=== PATIENT | female | born 1950 | race Caucasian/White ===

== ENCOUNTER → 2016-11-10 | Outpatient (CLI) | payer MEDICARE | LOC: GMAM 18:21 | PROVIDERS: ATTEND Family Medicine | DX: R31.9 Hematuria, unspecified (principal) ==

== ENCOUNTER → 2016-12-31 | Outpatient (CLI) | payer MEDICARE ==
--- NOTE | 2017-01-01 07:28 | CT ---
EXAM DESCRIPTION: Abdomen/Pelvis w/wo Contrast CLINICAL HISTORY: HEMATURIA COMPARISON: March 12, 2015 TECHNIQUE: CT of the abdomen and Pelvis was performed without IV contrast. This exam was performed according to our departmental dose-optimization program, which includes automated exposure control, adjustment of the mA and/or kV according to patient size and/or use of iterative reconstruction technique. FINDINGS: Pre-IV contrast images show no lung base abnormality. There is no left or right-sided urinary tract calculus. The gallbladder is surgically absent. Hazy appearance of the mesentery is noted, but this is stable from March 12, 2015. Postcontrast images show cortical irregularity in both kidneys suggestive of scarring from remote polynephritis. There is a 1.8 cm left renal cyst. No solid renal mass is identified. There is no bladder wall thickening. Mural calcifications are noted in the abdominal aorta without aneurysm or dissection. There is a 5.8 cm cyst in the left hepatic lobe with additional low density liver lesions too small to categorize but also likely representing cysts. The liver, spleen, pancreas and adrenals are otherwise unremarkable. No dilated small bowel loops. The uterus and ovaries are not seen, please correlate with surgical history. Colonic diverticulosis is noted without diverticulitis. Normal appendix. Postoperative changes in the left hip are only partially visualized. There are degenerative changes in lumbar spine multiple levels. IMPRESSION: Cortical irregular in both kidneys suggestive of scarring from remote pyelonephritis, but no urinary tract calculus, hydronephrosis, renal mass, bladder wall thickening or additional abnormality to explain hematuria. Colonic diverticulosis without diverticulitis. Other nonacute findings as detailed above. Electronically signed by: Blake Lin MD 01/01/2017 7:26 AM CDT Workstation: [id number]
== END | disposition home or self-care (01) ==
LOC: CT 08:02
PROVIDERS: ATTEND Urology
DX: R31.29 Other microscopic hematuria (principal)

== ENCOUNTER → 2018-03-04 | Outpatient (CLI) | payer MEDICARE | LOC: GMAM 10:21 | PROVIDERS: ATTEND Family Medicine | DX: N39.0 Urinary tract infection, site not specified (principal) ==

== ENCOUNTER → 2018-05-06 | Outpatient (CLI) | payer MEDICARE ==
--- NOTE | 2018-05-07 07:03 | US ---
US THYROID CLINICAL STATEMENT: NODULE. No palpable mass. No history of thyroid therapy or surgery. COMPARISON: None FINDINGS: Size right thyroid lobe: 4.1 x 1.9 x 1.3 cm Size left thyroid lobe: 4.1 x 1.5 x 1.2 cm Size isthmus: 0.31 cm Estimated total number of nodules greater than or equal to 1 cm: 1. The gland is heterogeneous both lobes and the isthmus. Nodule 1: Size: 1.3 x 1.1 x 0.9 cm Location: Left Lower Composition: solid or almost completely solid: 2 points Echogenicity: hypoechoic: 2 points Shape: wider than tall: 0 points Margins: smooth: 0 points Echogenic foci: none: 0 points ACR Total Points: 4; ACR TI-RADS risk category: TR4 - moderately suspicious nodule. Nodule 2: Size: 1.0 x 0.6 x 0.4 cm Location: Right Mid Composition: solid or almost completely solid: 2 points Echogenicity: hypoechoic: 2 points Shape: wider than tall: 0 points Margins: smooth: 0 points Echogenic foci: none: 0 points ACR Total Points: 4; ACR TI-RADS risk category: TR4 - moderately suspicious nodule. The soft tissue around the thyroid gland shows no evidence of dominant solid mass or distinct cyst. No parenchymal edema or large calcifications. No overlying skin changes. Normal vascularity. IMPRESSION: 1. Nodule 1: ACR TI-RADS 2017 Category TR4. Recommend: Follow-up ultrasound in 1 year.. Recommendations based upon [employer] Best [employer] recommendations and ACR TI-RADS 2017 guidelines. Please see below*. 2. Nodule 2: ACR TI-RADS 2017 Category TR4. Recommend: Follow-up ultrasound in 1 year. 3. The soft tissue around the thyroid gland is unremarkable. *ACR TI-RADS 2017 Recommendations: TR1: No FNA or follow up TR2: No FNA or follow up TR3: FNA if >/= 2.5 cm, follow up if 1.5 - 2.4 cm in 1, 3, and 5 years TR4: FNA if >/= 1.5 cm, follow up if 1.0 - 1.4 cm in 1, 2, 3, and 5 years TR5: FNA if >/= 1.0 cm, follow up if 0.5 - 0.9 cm every year for 5 years ACR TI-RADS recommends that no more than two nodules with the highest ACR TI-RADS total point should be biopsied and no more than four nodules should be followed. Electronically signed by: Petros Rasmussen MD 05/07/2018 7:02 AM [facility]
== END ==
LOC: US 09:58
PROVIDERS: ATTEND Family Medicine
DX: E04.1 Nontoxic single thyroid nodule (principal)

== ENCOUNTER 2018-11-23 11:02 | Emergency (ER) | payer MEDICARE ==
[2018-11-23 11:13] VITALS: TEMP 98.3; O2SAT 95
--- NOTE | 2018-11-23 11:48 | RAD ---
Findings: Three radiographs of the right ankle. No comparison. Minimally displaced lateral malleolar fracture with 0.5 cm lateral displacement of the distal fracture fragment. Adjacent soft tissue swelling overlying the lateral ankle. The ankle mortise is minimally widened laterally. Well-corticated ossific density distal to the medial malleolus. The talar dome is unremarkable. Evaluation limited by osteopenia. No other fracture identified. IMPRESSION: Minimally displaced lateral malleolar fracture and overlying soft tissue swelling. Minimal widening of the ankle mortise may reflect underlying ligamentous injury. Consider MRI when clinically appropriate. Electronically signed by: Braeden Alexis MD 11/23/2018 11:46 AM CDT
[2018-11-23] MEDS ORDERED: ONDANSETRON ODT 8 MG TAB SL ONE (11:55)
[2018-11-23] MEDS ORDERED: MORPHINE SULFATE INJ 10 MG/ML VIAL IM ONE (11:55)
--- NOTE | 2018-11-23 11:59 | ED.PDOC ---
History of Present Illness - General Chief Complaint: Lower Extremity Injury Stated Complaint: right ankle pain Time Seen by Provider: 11/23/18 11:45 Source: patient, RN notes reviewed, Vital Signs reviewed, family Exam Limitations: no limitations - History of Present Illness Initial Comments: slipped on a wet floor & twisted her ankle. Denies other issues. Occurred: just prior to arrival Pain - Lower Extremity: severe: Right Ankle Method of Injury: fell, twisted Improving Factors: nothing Worsening Factors: movement Allergies/Adverse Reactions: Allergies NO KNOWN ALLERGY Allergy (Verified 03/20/15 22:09) Home Medications: Ambulatory Orders Calcium Carbonate-Vitamin D W/ [Caltrate 600+D Plus Inter [employer]er 600-800 mg-Unit] 1 tab PO PRN 03/20/15 Lisinopril 20 mg PO DAILY 03/20/15 Metoprolol Succinate [Metoprolol Succinate ER] 50 mg PO DAILY 03/20/15 Acetaminophen W/ Codeine [Tylenol W/ CODEINE #3] 1 ea PO Q8HRS PRN 5 Days #15 11/23/18 Ascorbic Acid [Vitamin C] 500 mg PO PRN 11/23/18 Celecoxib [Celebrex] 200 mg PO DAILY 11/23/18 Review of Systems - Review of Systems Constitutional: States: no symptoms reported Respiratory: States: no symptoms reported Gastrointestinal/Abdominal: States: no symptoms reported Musculoskeletal: States: see HPI, joint pain, joint swelling. Denies: back pain Skin: States: no symptoms reported Neurological: States: no symptoms reported Past Medical History (General) - Patient Medical History Hx Seizures: No Hx Stroke: No Hx Asthma: No Hx of COPD: No Hx Cardiac Disorders: No Hx Congestive Heart Failure: No Hx Pacemaker: No Hx Hypertension: Yes Hx Diabetes: No Hx MRSA: No - Vaccination History Hx Influenza Vaccination: Yes Hx Pneumococcal Vaccination: Yes - Social History Hx Tobacco Use: No Hx Alcohol Use: No Hx Substance Use: No Hx Physical Abuse: No Hx Emotional Abuse: No Family Medical History - Family History Mother Family History: Unknown Living Status: Hx Family Cancer: Yes - bladder cancer Physical Exam - Physical Exam General Appearance: Alert, No apparent distress, Other - uncomfortable Neck: supple Thigh/Hip: normal inspection, no evidence of injury Leg: normal inspection, non-tender, no evidence of injury Knee: normal inspection, non-tender, no evidence of injury Ankle: bone tenderness, limited ROM, soft tissue tenderness, swelling Foot: normal inspection, non-tender, no evidence of injury Progress - Progress Progress: 11/23/18 13:14 She has an ortho boot that she wants to use. Applied here. Instructed to be non- weight bearing. - EKG/XRAY/CT XRAY: ankle - distal fibula fx; possible ligamentous injury Departure - Departure Clinical Impression: Closed fracture of ankle Qualifiers: Encounter type: initial encounter Laterality: right Qualified Code(s): S82.891A - Other fracture of right lower leg, initial encounter for closed fracture Time of Disposition: 11:57 Disposition: Discharge to Home or Self Care Condition: Fair Departure Forms: ED Discharge - Pt. Copy, Patient Portal Self Enrollment Instructions: Ankle Fracture (DC) Activity: other - NO WEIGHT BEARING Referrals: Simone Faith MD [Active Staff] - 11/28/18 Prescriptions: Acetaminophen W/ Codeine [Tylenol W/ CODEINE #3] 1 ea PO Q8HRS PRN 5 Days #15 PRN Reason: Moderate Pain Home Medications: Ambulatory Orders Calcium Carbonate-Vitamin D W/ [Caltrate 600+D Plus [place] 600-800 mg-Unit] 1 tab PO PRN 03/20/15 Lisinopril 20 mg PO DAILY 03/20/15 Metoprolol Succinate [Metoprolol Succinate ER] 50 mg PO DAILY 03/20/15 Acetaminophen W/ Codeine [Tylenol W/ CODEINE #3] 1 ea PO Q8HRS PRN 5 Days #15 11/23/18 Ascorbic Acid [Vitamin C] 500 mg PO PRN 11/23/18 Celecoxib [Celebrex] 200 mg PO DAILY 11/23/18
[2018-11-23 12:12] VITALS: BP 147/84
== END 2018-11-23 12:12 | disposition home or self-care (01) ==
LOC: ER 11:02
DX: S82.831A Other fracture of upper and lower end of right fibula, initial encounter for closed fracture (principal); I10 Essential (primary) hypertension; Z79.899 Other long term (current) drug therapy; W01.0XXA Fall on same level from slipping, tripping and stumbling without subsequent striking against object, initial encounter; Y92.009 Unspecified place in unspecified non-institutional (private) residence as the place of occurrence of the external cause; Y93.E5 Activity, floor mopping and cleaning
CPT/HCPCS: 73610; J2270

== ENCOUNTER → 2018-11-28 | Outpatient (CLI) | payer MEDICARE ==
--- NOTE | 2018-11-28 09:36 | RAD ---
Findings: Three radiographs of the right ankle Increased lateral displacement of the distal fracture fragment of the distal right fibula. 0.8 cm impaction. 0.9 cm lateral displacement. Increased widening of the medial ankle mortise demonstrating approximately 0.5 cm asymmetry. No new fracture identified. Redemonstrated well-corticated ossific density distal to the medial malleolus, likely reflecting remote trauma. The talar dome is unremarkable. Persistent soft tissue swelling about the right ankle. Slight posterior subluxation of the talus with regards to the distal tibia. IMPRESSION: Redemonstrated right ankle fracture/dislocation. Increased distal right fibular fracture fragment impaction and displacement. Increased widening of the medial ankle mortise, which most likely indicates underlying ligamentous injury. Electronically signed by: Braeden Alexis MD 11/28/2018 9:34 AM CDT
== END ==
LOC: RAD 08:54
PROVIDERS: ATTEND Orthopaedic Surgery
DX: S82.831D Other fracture of upper and lower end of right fibula, subsequent encounter for closed fracture with routine healing (principal)

== ENCOUNTER 2018-11-29 05:36 | Day surgery (SDC) | payer MEDICARE ==
--- NOTE | 2018-11-28 12:33 | HP ---
CHIEF COMPLAINT: Right ankle pain. HISTORY OF PRESENT ILLNESS: Ms. Wright is a 68-year-old female with a history of a fall that occurred on 11/23/18. She had the acute onset of pain in the ankle. She complains of pain now without radiation. The pain is on both the medial and lateral aspects. She has been in a boot and has been non- weightbearing. She has pain that is sharp in nature. PAST SURGICAL HISTORY: 1. Rotator cuff repair. 2. Hip surgery. MEDICATIONS: 1. Tylenol #3. PAIN CONTRACT: None. ALLERGIES: NO KNOWN DRUG ALLERGIES. CODE STATUS: Full code. IMMUNIZATIONS: Up to date. SOCIAL HISTORY: The patient does not drink, smoke or use any illicit drugs. FAMILY HISTORY: None pertinent to today's complaint. REVIEW OF SYSTEMS: Negative except as indicated in the History of Present Illness. PHYSICAL EXAMINATION: VITAL SIGNS: Blood pressure 81/57. Pulse 96. Height 5'6". Weight 154 pounds. MENTAL STATUS: The patient is awake, alert, and is able to give a good history and participate in the physical. The patient is oriented to person, place and time. SKIN: Normal tone and turgor. HEENT: Normocephalic, atraumatic. Pupils equal, round and reactive. Mucosal membranes are moist. NECK: Normal range of motion. No thyromegaly, no lymphadenopathy. CHEST: Normal respiratory excursion. CARDIAC: Regular rate and rhythm. No murmurs, rubs or gallops. MUSCULOSKELETAL: The bilateral upper extremities show full active range of motion without pain. She has intact sensation and they are warm and well perfused. Strength is 5/5. The left lower extremity shows no deformity. She has full range of motion of the hip, knee, ankle and digits. Sensation is intact. The right lower extremity shows full range of motion in the hip and knee. The ankle is swollen and has some diffuse bruising. She has some pain both medially and laterally. Strength is 5/5 throughout the knee and hip. Any attempted range of motion of the ankle causes pain. IMAGING: X-rays show displaced fibula fracture. There is widening of the medial clear space. ASSESSMENT: 1. Bimalleolar ankle fracture equivalent. PLAN: The plan at this point is for open reduction and internal fixation. Her skin appears to be intact enough that we can do this in the coming days. She was placed back in a boot. We have discussed the risks, benefits, and alternatives to that and the patient has given informed consent. #[id number] MTDD
--- NOTE | 2018-11-28 14:03 | RAD ---
EXAM DESCRIPTION: Chest,2 Views CLINICAL HISTORY: preop exam for surgery on 11/29/18 COMPARISON: Previous study June 25, 2015 TECHNIQUE: PA/lateral FINDINGS: There is no acute appearing cardiac or pulmonary abnormality. Heart size is normal with normal pulmonary vascularity. No pleural effusion or pneumothorax. Lungs are clear with no consolidating infiltrate. Lateral view shows intact sternum and spurring in the T-spine. Old wedge compression in the lower T-spine. IMPRESSION: No acute process is identified in the chest. Electronically signed by: Arie Allan MD 11/28/2018 2:01 PM CDT
[2018-11-29] MEDS ORDERED: LACTATED RINGERS 1,000 ML ONE (08:21)
[2018-11-29] MEDS ORDERED: ceFAZolin SODIUM 1 GM VIAL ONE (08:21)
[2018-11-29] MEDS ORDERED: SODIUM CHL 0.9% 100ML MINI-BAG 100 ML IVPB ONE (08:21)
[2018-11-29] MEDS ORDERED: LIDOCAINE 1% 10 ML VIAL INJ ONE (10:00)
[2018-11-29] MEDS ORDERED: PROPOFOL 200 MG/20 ML VIAL IV ONE (10:00)
[2018-11-29] MEDS ORDERED: MIDAZOLAM INJ 2 MG/2 ML VIAL ONE (10:20)
[2018-11-29] MEDS ORDERED: ACETAMINOPHEN IV 1000MG 100 ML ONE (10:21)
[2018-11-29] MEDS: BUPIVACAINE LIPOSOME 13.3 MG/ML VIAL INJ ONE ×2 (11:21→11:49)
[2018-11-29] MEDS: ceFAZolin SODIUM 1 GM VIAL ONE ×2 (11:21→11:50)
[2018-11-29] MEDS: BUPIVACAINE 0.5% 30 ML VIAL INJ ONE ×2 (11:21→11:49)
[2018-11-29] MEDS: VANCOMYCIN HCL INJ 1,000 MG VIAL IVPB ONE ×2 (11:21→11:50)
[2018-11-29] MEDS ORDERED: HYDROmorphone HCL INJ 2 MG/ML VIAL ONE (12:37)
[2018-11-29] MEDS: HYDROmorphone HCL INJ 2 MG/ML VIAL ONE ×3 (12:39→13:20)
[2018-11-29] MEDS ORDERED: fentaNYL CITRATE INJ 50 MCG/ML AMP ONE (12:54)
--- NOTE | 2018-11-29 13:13 | RAD ---
EXAM DESCRIPTION: Ankle,Right 2 Views CLINICAL HISTORY: Post ORIF COMPARISON: 28 November 2018 TECHNIQUE: AP and lateral FINDINGS: Plate and screw fixation of a fracture of the distal fibula is observed. The fracture is reduced to near-anatomic alignment. A plantar calcaneal spurs observed. Intertarsal arthritis is seen. The ankle mortise is reduced. IMPRESSION: ORIF distal left fibular fracture Electronically signed by: Farhad Talbot MD 11/29/2018 1:11 PM CDT
[2018-11-29] MEDS ORDERED: ONDANSETRON INJ 4 MG/2 ML VIAL ONE (14:12)
--- NOTE | 2018-11-29 15:06 | RAD ---
EXAM DESCRIPTION: Fluoroscopy Up to 1Hr CLINICAL HISTORY: RIGHT ANKLE FRACTURE COMPARISON: None. IMPRESSION: Spot fluoroscopic intraoperative views of the right ankle are obtained for localization purposes during lateral plate and screw fixation of the distal fibula. Less than 1 minute of intraoperative fluoroscopy time was utilized. No extra exposure images are obtained. Electronically signed by: Dayo Bowamn MD 11/29/2018 3:04 PM CDT
[2018-11-29 15:32] VITALS: BP 123/65; TEMP 97.2; O2SAT 100
--- NOTE | 2018-11-30 10:28 | OP ---
DATE OF PROCEDURE: 11/29/18 PREOPERATIVE DIAGNOSIS: 1. Fibula fracture. POSTOPERATIVE DIAGNOSIS: 1. Fibula fracture. PROCEDURE: 1. Open reduction and internal fixation of fibula. SURGEON: Simone Faith MD. HOSPITAL WELLNESS COORDINATOR: Petros Slaughter CST, SA-C. ANESTHESIA: General anesthesia. COMPLICATIONS: None. FINDINGS: Distal fibula fracture with rupture of the deltoid ligament. INDICATION: Ms. Wright has a history of a twisting injury which resulted in acute onset of pain in the ankle. Because of that, she was taken to the Emergency Room and x-rays revealed a fracture of the distal fibula with lateral translation of the tibia. After being splinted and returning to the clinic, we discussed the risks, benefits and alternatives to operative therapy. After discussing those, she gave informed consent for surgical intervention. PROCEDURE: The patient was brought to the Operating Room and placed in the supine position. General anesthesia was induced and the patient's leg was sterilely prepped and draped. Following prepping and draping, an incision was made directly over the lateral border of the fibula. Dissection was carried down and the periosteum was elevated. After that, the fracture site was debrided and reduction was performed. A plate was applied to the lateral aspect under fluoroscopic imaging to ensure maintenance of the reduction. Following placement of the plate, the ankle was stressed and there was no lateral translation of the tibia. The wound was very thoroughly irrigated and closed with Nylon suture. Sterile dressings were placed. The patient was placed in a splint and awoken from anesthesia. She was taken to the Recovery Room. POSTOPERATIVE PLAN: She will be non-weightbearing and will followup with us in approximately two days. [id number] [facility]
== END 2018-11-29 15:20 | disposition home or self-care (01) ==
LOC: AMB 05:36
PROVIDERS: ATTEND Orthopaedic Surgery
DX: S82.844A Nondisplaced bimalleolar fracture of right lower leg, initial encounter for closed fracture (principal); W19.XXXA Unspecified fall, initial encounter
CPT/HCPCS: 01480; 27814; 36415; 71046; 73600; 76000; 80048; 80307; 81001; 85025; 87070; 93005; J0690; J1170; J2250; J2405; J3010; J3370; J3490; J7050; J7120

== ENCOUNTER → 2018-12-08 | Outpatient (CLI) | payer MEDICARE ==
--- NOTE | 2018-12-08 12:26 | RAD ---
PROVIDED CLINICAL HISTORY/REASON FOR EXAM: S82.91XD Findings: Number of images: 3 Location: Right ankle No acute fracture or dislocation. Joint spaces are maintained. The talar dome is unremarkable. The ankle mortise is symmetric. Lateral plate and screws transfix the healing distal right fibular fracture. No hardware complication. Stable alignment. Improved soft tissue swelling. Otherwise unchanged. IMPRESSION: Healing internally fixated distal right fibular fracture. No hardware complication. Electronically signed by: Braeden Alexis MD 12/08/2018 12:23 PM CDT
== END ==
LOC: RAD 10:38
PROVIDERS: ATTEND Orthopaedic Surgery
DX: S82.91XD Unspecified fracture of right lower leg, subsequent encounter for closed fracture with routine healing (principal)

== ENCOUNTER → 2019-01-05 | Outpatient (CLI) | payer MEDICARE ==
--- NOTE | 2019-01-05 10:27 | RAD ---
PROVIDED CLINICAL HISTORY/REASON FOR EXAM: S82.841D Findings: Number of images: Three Location: Right ankle Lateral plate and screws transfix a healing distal fibula fracture. No evidence of hardware complication. Anatomic alignment. Similar ankle soft tissue swelling. No new fracture identified. Osteopenia. Ankle mortise is symmetric. The talar dome is unremarkable. Moderate tibiotalar osteoarthritis. Calcaneal enthesophytes. Moderate midfoot osteoarthritis, stable. IMPRESSION: Healing internally fixated distal fibular fracture. No evidence of hardware complication. Electronically signed by: Braeden Alexis MD 01/05/2019 10:25 AM CDT
== END ==
LOC: MERGE 00:54 → RAD 09:10
PROVIDERS: ATTEND Orthopaedic Surgery
DX: S82.841D Displaced bimalleolar fracture of right lower leg, subsequent encounter for closed fracture with routine healing (principal)

== ENCOUNTER → 2019-02-06 | Outpatient (CLI) | payer MEDICARE ==
--- NOTE | 2019-02-06 11:29 | RAD ---
EXAM DESCRIPTION: Ankle,Right 3 Views CLINICAL HISTORY: 69 years Female, FX COMPARISON: 01/05/2019 TECHNIQUE: AP, oblique and lateral radiographs. FINDINGS: The visualized bones appear poorly mineralized. Plate and screw fixation of the distal fibula with no definite fracture lines visualized. Fracture of the medial malleolus appears unchanged. Mild diffuse soft tissue swelling is identified. IMPRESSION: Plate and screw fixation of the distal fibula with no definite fracture lines visualized. Fracture of the medial malleolus appears unchanged. Electronically signed by: Sarina Mcgowan MD 02/06/2019 11:27 AM CDT
== END ==
LOC: RAD 07:46
PROVIDERS: ATTEND Orthopaedic Surgery
DX: S82.841D Displaced bimalleolar fracture of right lower leg, subsequent encounter for closed fracture with routine healing (principal); Z98.890 Other specified postprocedural states

== ENCOUNTER → 2019-03-10 | Outpatient (CLI) | payer MEDICARE ==
--- NOTE | 2019-03-10 15:32 | RAD ---
EXAM DESCRIPTION: Ankle,Right 3 Views CLINICAL HISTORY: 69 years Female, CLOSED BIMALLEOLAR FX COMPARISON: Right ankle radiographs 02/06/2019 TECHNIQUE: 3 views of the right ankle. IMPRESSION: Screening the lateral screw-plate fixation traversing distal fibula. Mildly progressive sclerosis at the fracture site consistent with healing. Progressive healing of the medial malleoli fracture without displacement. No new acute displaced fracture. No dislocation. Continued narrowing of the fibulotalar interval. Intact talar dome. Large calcaneal enthesophyte at the plantar fascia. Small tibiotalar joint effusion. Unchanged generalized soft tissue tissue swelling about the right lower extremity. Electronically signed by: Rafael Chance MD 03/10/2019 3:30 PM CDT
== END ==
LOC: RAD 09:23
PROVIDERS: ATTEND Orthopaedic Surgery
DX: S82.841D Displaced bimalleolar fracture of right lower leg, subsequent encounter for closed fracture with routine healing (principal); M77.31 Calcaneal spur, right foot; Z98.890 Other specified postprocedural states

== ENCOUNTER → 2019-12-28 | Outpatient (CLI) | payer MEDICARE ==
--- NOTE | 2019-12-30 18:29 | US ---
US THYROID CLINICAL STATEMENT:69 years Female NONTOXIC SINGLE THYROID NODULE. COMPARISON: None TECHNIQUE: Transcutaneous scanning, grayscale and Doppler modes. FINDINGS: Size right thyroid lobe: 3.7 x 1.8 x 1.0 cm Size left thyroid lobe: 3.5 x 1.3 x 0.98 cm Size isthmus: 0.29 cm Estimated total number of nodules greater than or equal to 1 cm: 2. Nodule 1: Size: 1.3 x 1.1 x 1.0 cm Location: Left Lower Composition: solid or almost completely solid: 2 points Echogenicity: hypoechoic: 2 points Shape: wider than tall: 0 points Margins: smooth: 0 points Echogenic foci: none: 0 points ACR Total Points: 4; ACR TI-RADS risk category: TR4 - moderately suspicious nodule. Nodule 2: Size: 1.1 x 0.9 x 0.6 cm Location: Right Mid Composition: solid or almost completely solid: 2 points Echogenicity: hypoechoic: 2 points Shape: wider than tall: 0 points Margins: ill-defined: 0 points Echogenic foci: none: 0 points ACR Total Points: 4; ACR TI-RADS risk category: TR4 - moderately suspicious nodule. No dominant solid mass, no distinct cyst, no fluid collection, and no large calcifications. IMPRESSION: 1. Nodule 1: ACR TI-RADS 2017 Category TR4. Recommend: Follow-up ultrasound in 1 year.. Recommendations based upon [employer] Best Practice recommendations and ACR TI-RADS 2017 guidelines. Please see below*. 2. Nodule 2: ACR TI-RADS 2017 Category TR4. Recommend: Follow-up ultrasound in 1 year. 3. Soft tissue around the thyroid gland is unremarkable. *ACR TI-RADS 2017 Recommendations for imaging follow-up of nodules: TR1: No FNA or follow up TR2: No FNA or follow up TR3: FNA if >/= 2.5 cm, follow up if 1.5 - 2.4 cm in 1, 3, and 5 years TR4: FNA if >/= 1.5 cm, follow up if 1.0 - 1.4 cm in 1, 2, 3, and 5 years TR5: FNA if >/= 1.0 cm, follow up if 0.5 - 0.9 cm every year for 5 years ACR TI-RADS recommends that no more than two nodules with the highest ACR TI-RADS total point should be biopsied and no more than four nodules should be followed. These recommendations do not apply to patients with increased risk for thyroid cancer or patients with symptomatic thyroid disease. Electronically signed by: Petros Rasmussen MD 12/30/2019 6:27 PM CDT
== END ==
LOC: US 09:59
PROVIDERS: ATTEND Family Medicine
DX: E04.1 Nontoxic single thyroid nodule (principal)

== ENCOUNTER → 2020-01-01 | Outpatient (CLI) | payer MEDICARE ==
--- NOTE | 2020-01-02 16:30 | MAM ---
EXAM DESCRIPTION: 3D Screening BILATERAL : Digital Mammography. CLINICAL HISTORY: 69 years Female SCREENING . No complaints. Menarche age 14. Childbirth age 25. Menopause age. No HRT. Lifetime risk of developing breast cancer (Tyrer-Cuzick model)(%): 7.6. COMPARISON: 2-D digital screening bilateral mammography April 2016. TECHNIQUE: Bilateral CC and MLO projection full-field images, with [employer] Displacement digital tomosynthesis mammographic technique. Bilateral 2-D digital full-field images, MLO and CC projections, non-displaced. Bilateral digital 2-D full-field MLO images. and CC images. CAD available for 2-D images. FINDINGS: The breast parenchymal density pattern is: Scattered areas of fibroglandular density No skin thickening or nipple retraction. Bilateral skin mole markers. Vascular calcifications. Solitary microcalcifications. Intramammary lymph nodes. No new focal, stellate mass or density, focal asymmetry , and no suspicious microcalcifications bilaterally. Stable mammograms compared to prior study. Taking into account, differences in mammographic technique. IMPRESSION: Benign exam. BIRAD CATEGORY: 2 BENIGN FINDINGS. RECOMMENDATIONS: FOLLOW UP: Routine digital bilateral mammographic screening, one year interval from December 2019. Written communication explaining the IMPRESSION and follow-up, will be mailed to the patient and referring health care provider. According to the [employer], yearly mammograms are recommended starting at age 40 and continuing as long as a woman is in good health. Any breast change noted on a breast self-exam should be reported promptly to the patient's healthcare provider. Breast MRI is recommended for women with an approximately 20-25% or greater lifetime risk of breast cancer, including women with a strong family history of breast or ovarian cancer and women who have been treated for Hodgkin's disease. A negative mammographic report should not delay tissue diagnosis in patients with significant clinical history or physical findings. Extremely dense breast tissue limits the sensitivity of digital mammography. Electronically signed by: Petros Rasmussen MD 01/02/2020 4:29 PM CDT
== END ==
LOC: MAMMO 13:53
PROVIDERS: ATTEND Family Medicine
DX: Z12.31 Encounter for screening mammogram for malignant neoplasm of breast (principal)